=== PATIENT | female | born 1960 | race African-American/Black ===

== ENCOUNTER 2018-06-18 14:21 | Inpatient (IN) ==
[2018-06-18] MEDS ORDERED: GLUCAGON 1 MG VIAL IM PRN ×2 (15:00)
[2018-06-18] MEDS ORDERED: ONDANSETRON 4 MG/2 ML VIAL IV PRN (15:00)
[2018-06-18] MEDS ORDERED: MAGNESIUM HYDROXIDE SUSP 30 ML UDCUP PO PRN (15:00)
[2018-06-18] MEDS ORDERED: PROMETHAZINE 25 MG/1 ML VIAL IM PRN (15:00)
[2018-06-18] MEDS ORDERED: DEXTROSE 50% 25 GM/50 ML VIAL IV PRN ×2 (15:00)
[2018-06-18] MEDS ORDERED: DILTIAZEM INJ 100 MG in SODIUM CHLORIDE 0.9% 100 ML IV SCH (16:00)
[2018-06-18] MEDS: SODIUM CHLORIDE 0.9% 1,000 ML IV SCH (17:31)
[2018-06-18] MEDS: INSULIN GLARGINE 100 UNIT/ML SUBCUT SCH (17:32)
[2018-06-18] MEDS: INSULIN REGULAR 100 UNIT/ML SUBCUT SCH (17:32)
[2018-06-18] MEDS: cefTRIAXone 500 MG in SYRINGE 1 EACH IV SCH (17:32)
[2018-06-18] MEDS: DILTIAZEM 60 MG TABLET PO SCH ×2 (17:54→21:25)
[2018-06-18] MEDS: ALBUTEROL/IPRATROPIUM 3 ML NEB RESP TX SCH (19:42)
[2018-06-18 21:24] LABS: Basophils # 0.1 10*3/uL (0.0-0.2); Basophils % 0.6 % (0.0-0.8); Eosinophils # 0.2 10*3/uL (0.0-0.87); Eosinophils % 1.5 % (0.00-10.9); Hematocrit 42.6 VOL% (35.7-47.0); Hemoglobin 14.3 GM/DL (12.0-16.0); Immature Granulocytes % 0.4 %; Immature Granulocytes Absolute 0.04 #; Lymphocytes # 3.8 10*3/uL (1.4-4.0); Mean Corpuscular HGB Conc 33.6 GM/DL (32-36); Mean Corpuscular Hemoglobin 31 PG (27-34); Mean Corpuscular Volume 92.4 FL (87-102); Mean Platelet Volume 11.1 FL (9.6-12.0); Monocytes % 8.5 % (1.7-12.7); Neutrophils # 6.1 10*3/uL (1.4-7.4); Platelet Count 165 T/CUMM (130-400); Red Blood Count 4.61 MC/CUMM (3.8-5.5); Red Cell Distribution Width 12.2 % (9.3-17.3); White Blood Count 11.1 T/CUMM (4-12)
[2018-06-18] MEDS: FAMOTIDINE 20 MG TABLET PO SCH (21:28)
[2018-06-18] MEDS: DOCUSATE SODIUM 100 MG CAPSULE PO SCH (21:28)
[2018-06-18] MEDS: ACETAMINOPHEN 325 MG TABLET PO PRN (21:28)
[2018-06-18 21:51] LABS: Albumin 3.5 G/DL (3.4-5.0); Bilirubin,Total 0.4 MG/DL (0.2-1.0); Calcium 9.3 MG/DL (8.5-10.1); Osmolality,Calculated 287.8 MOS/KG (273-304); Potassium 3.8 MMOL/L (3.5-5.1); Total Protein 8.2 G/DL (6.4-8.3)
[2018-06-19] MEDS ORDERED: GLIMEPIRIDE 2 MG TABLET PO ONE (00:08)
[2018-06-19] MEDS: traMADol 50 MG TABLET PO PRN ×2 (00:09→08:49)
[2018-06-19] MEDS: AMITRIPTYLINE 50 MG TABLET PO SCH ×2 (00:43→21:15)
[2018-06-19] MEDS: INSULIN REGULAR 100 UNIT/ML SUBCUT SCH ×5 (00:43→22:33)
[2018-06-19] MEDS: CYCLOBENZAPRINE 10 MG TABLET PO SCH ×2 (00:43→21:16)
[2018-06-19] MEDS: SODIUM CHLORIDE 0.9% 1,000 ML IV SCH ×3 (00:44→21:17)
[2018-06-19 00:58] LABS: Basophils # 0.1 10*3/uL (0.0-0.2); Basophils % 0.7 % (0.0-0.8); Eosinophils # 0.2 10*3/uL (0.0-0.87); Eosinophils % 1.4 % (0.00-10.9); Hematocrit 44.5 VOL% (35.7-47.0); Hemoglobin 14.4 GM/DL (12.0-16.0); Immature Granulocytes % 0.4 %; Immature Granulocytes Absolute 0.04 #; Lymphocytes # 3.7 10*3/uL (1.4-4.0); Lymphocytes % 33.7 % (21.3-54.2); Mean Corpuscular HGB Conc 32.4 GM/DL (32-36); Mean Corpuscular Hemoglobin 30 PG (27-34); Mean Corpuscular Volume 92.9 FL (87-102); Mean Platelet Volume 10.9 FL (9.6-12.0); Monocytes % 9.3 % (1.7-12.7); Neutrophils % 54.5 % (38.7-73.9); Platelet Count 163 T/CUMM (130-400); Red Blood Count 4.79 MC/CUMM (3.8-5.5); Red Cell Distribution Width 12.1 % (9.3-17.3); White Blood Count 10.9 T/CUMM (4-12)
[2018-06-19] MEDS: ALBUTEROL/IPRATROPIUM 3 ML NEB RESP TX SCH ×4 (01:20→19:30)
[2018-06-19 01:23] LABS: Calcium 8.9 MG/DL (8.5-10.1); Osmolality,Calculated 286.8 MOS/KG (273-304); Potassium 4.1 MMOL/L (3.5-5.1); Risk Ratio 3.98; VLDL CHOLESTEROL 22.2 MG/DL
[2018-06-19] MEDS ORDERED: GLIMEPIRIDE 2 MG TABLET PO SCH (08:00)
[2018-06-19] MEDS: INSULIN GLARGINE 100 UNIT/ML SUBCUT SCH (08:47)
[2018-06-19] MEDS: FAMOTIDINE 20 MG TABLET PO SCH ×2 (08:48→21:13)
[2018-06-19] MEDS: POTASSIUM CHLORIDE 20 MEQ TABLET PO SCH ×2 (08:49→21:16)
[2018-06-19] MEDS: DOCUSATE SODIUM 100 MG CAPSULE PO SCH ×2 (08:49→21:15)
[2018-06-19] MEDS: MAGNESIUM OXIDE 400 MG TABLET PO SCH (08:49)
[2018-06-19] MEDS: ACETAMINOPHEN 325 MG TABLET PO PRN ×2 (08:50→21:16)
[2018-06-19] MEDS: LOSARTAN 50 MG TABLET PO SCH (08:50)
[2018-06-19] MEDS: ASPIRIN EC 81 MG TABLET PO SCH (08:50)
[2018-06-19] MEDS: CARVEDILOL 25 MG TABLET PO SCH ×2 (08:50→21:16)
[2018-06-19] MEDS ORDERED: DILTIAZEM 60 MG TABLET PO SCH (09:00)
[2018-06-19] MEDS ORDERED: CYCLOBENZAPRINE 10 MG TABLET PO SCH (09:00)
[2018-06-19] MEDS ORDERED: AMITRIPTYLINE 50 MG TABLET PO SCH (09:00)
[2018-06-19] MEDS: INSULIN LISPRO 100 UNIT/ML SUBCUT SCH ×2 (13:08→16:21)
[2018-06-19] MEDS: KETOROLAC 15 MG/1 ML VIAL IV PRN (13:40)
[2018-06-19] MEDS: cefTRIAXone 500 MG in SYRINGE 1 EACH IV SCH (16:22)
[2018-06-19 17:19] LABS: Apearance,Urine CLEAR (Clear); Bilirubin,Urine Negative (Negative); Blood, Urine Negative (Negative); Glucose,Urine (UA) >=500 mg/dL (Negative); Ketones,Urine Negative (Negative); Mucus,Urine Occasional /LPF (Occasional); Nitrite,Urine Negative (Negative); Protein,Urine Negative; RBC,Urine <1 /HPF (0-4); Squamous Epithelial Cell,Urine Occasional /HPF (0-10); Urine Color Yellow (Yellow); Urine Specific Gravity 1.028 (1.001-1.035); WBC,Urine 2 /HPF (0-6)
[2018-06-19] MEDS: NYSTATIN OINT 15 GM TUBE TOP SCH (21:12)
[2018-06-19] MEDS: ATORVASTATIN 40 MG TABLET PO SCH (21:15)
[2018-06-20] MEDS: ALBUTEROL/IPRATROPIUM 3 ML NEB RESP TX SCH ×4 (01:16→20:32)
[2018-06-20] MEDS: KETOROLAC 15 MG/1 ML VIAL IV PRN ×2 (01:25→16:11)
[2018-06-20] MEDS: POTASSIUM CHLORIDE 20 MEQ TABLET PO SCH ×2 (08:56→21:14)
[2018-06-20] MEDS: GLIMEPIRIDE 2 MG TABLET PO SCH ×2 (08:56→16:11)
[2018-06-20] MEDS: LOSARTAN 50 MG TABLET PO SCH (08:57)
[2018-06-20] MEDS: MAGNESIUM OXIDE 400 MG TABLET PO SCH (08:57)
[2018-06-20] MEDS: ASPIRIN EC 81 MG TABLET PO SCH (08:57)
[2018-06-20] MEDS: CARVEDILOL 25 MG TABLET PO SCH ×2 (08:57→21:14)
[2018-06-20] MEDS: FAMOTIDINE 20 MG TABLET PO SCH ×2 (08:57→21:14)
[2018-06-20] MEDS: DOCUSATE SODIUM 100 MG CAPSULE PO SCH ×2 (08:57→21:14)
[2018-06-20] MEDS: INSULIN GLARGINE 100 UNIT/ML SUBCUT SCH (08:58)
[2018-06-20] MEDS: INSULIN LISPRO 100 UNIT/ML SUBCUT SCH ×3 (08:58→16:11)
[2018-06-20] MEDS: ENOXAPARIN 40 MG/0.4 ML SYRINGE SUBCUT SCH (08:59)
[2018-06-20] MEDS ORDERED: PENTOXIFYLLINE 400 MG TABLET PO SCH (09:00)
[2018-06-20] MEDS: NYSTATIN OINT 15 GM TUBE TOP SCH ×2 (09:01→20:32)
[2018-06-20] MEDS: INSULIN REGULAR 100 UNIT/ML SUBCUT SCH ×4 (09:01→21:20)
[2018-06-20] MEDS: SODIUM CHLORIDE 0.9% 1,000 ML IV SCH ×4 (09:28→20:05)
[2018-06-20 09:43] LABS: Basophils # 0.1 10*3/uL (0.0-0.2); Basophils % 0.7 % (0.0-0.8); Eosinophils # 0.2 10*3/uL (0.0-0.87); Eosinophils % 2.1 % (0.00-10.9); Hematocrit 41.1 VOL% (35.7-47.0); Hemoglobin 13.2 GM/DL (12.0-16.0); Immature Granulocytes % 0.3 %; Immature Granulocytes Absolute 0.02 #; Lymphocytes # 2.6 10*3/uL (1.4-4.0); Lymphocytes % 36.3 % (21.3-54.2); Mean Corpuscular HGB Conc 32.1 GM/DL (32-36); Mean Corpuscular Hemoglobin 30 PG (27-34); Mean Corpuscular Volume 94.7 FL (87-102); Monocytes # 0.5 10*3/uL (0.11-0.8); Monocytes % 6.9 % (1.7-12.7); Neutrophils # 3.9 10*3/uL (1.4-7.4); Neutrophils % 53.7 % (38.7-73.9); Platelet Count 136 T/CUMM (130-400); Red Blood Count 4.34 MC/CUMM (3.8-5.5); Red Cell Distribution Width 12.3 % (9.3-17.3); White Blood Count 7.2 T/CUMM (4-12)
[2018-06-20 10:03] LABS: Alanine Aminotransferase 42 U/L (13-56); Albumin 3.2 G/DL (3.4-5.0); Alkaline Phosphatase 80 U/L (45-117); Aspartate Amino Transferase 24 U/L (0-37); Bilirubin,Total < 0.39 MG/DL (0.2-1.0); Blood Urea Nitrogen 21 MG/DL (7-18); Calcium 8.5 MG/DL (8.5-10.1); Glucose 335 MG/DL (74-106); Osmolality,Calculated 290.7 MOS/KG (273-304); Potassium 4.6 MMOL/L (3.5-5.1); Sodium 138 MMOL/L (136-145); Total Protein 7.2 G/DL (6.4-8.3)
[2018-06-20] MEDS: ACETAMINOPHEN 325 MG TABLET PO PRN (10:25)
[2018-06-20] MEDS: cefTRIAXone 500 MG in SYRINGE 1 EACH IV SCH (16:10)
[2018-06-20] MEDS ORDERED: MAGNESIUM SULF RIDER 1 GM in PREMIX 1 EACH IV ONE (17:12)
[2018-06-20] MEDS: GABAPENTIN 300 MG CAPSULE PO SCH (21:13)
[2018-06-20] MEDS: AMITRIPTYLINE 50 MG TABLET PO SCH (21:13)
[2018-06-20] MEDS: ATORVASTATIN 40 MG TABLET PO SCH (21:14)
[2018-06-20] MEDS: CYCLOBENZAPRINE 10 MG TABLET PO SCH (21:14)
[2018-06-21] MEDS: ALBUTEROL/IPRATROPIUM 3 ML NEB RESP TX SCH ×4 (01:38→19:36)
[2018-06-21] MEDS: DOCUSATE SODIUM 100 MG CAPSULE PO SCH ×2 (11:58→20:56)
[2018-06-21] MEDS: MAGNESIUM OXIDE 400 MG TABLET PO SCH (11:58)
[2018-06-21] MEDS: FAMOTIDINE 20 MG TABLET PO SCH ×2 (11:59→20:57)
[2018-06-21] MEDS: CARVEDILOL 25 MG TABLET PO SCH ×2 (12:00→20:57)
[2018-06-21] MEDS: ASPIRIN EC 81 MG TABLET PO SCH (12:00)
[2018-06-21] MEDS: FUROSEMIDE 40 MG TABLET PO SCH (12:00)
[2018-06-21] MEDS: LOSARTAN 50 MG TABLET PO SCH ×2 (12:00→20:57)
[2018-06-21] MEDS: INSULIN GLARGINE 100 UNIT/ML SUBCUT SCH (12:03)
[2018-06-21] MEDS: INSULIN LISPRO 100 UNIT/ML SUBCUT SCH ×3 (12:05→16:33)
[2018-06-21] MEDS: ENOXAPARIN 40 MG/0.4 ML SYRINGE SUBCUT SCH (12:06)
[2018-06-21] MEDS: GLIMEPIRIDE 2 MG TABLET PO SCH ×2 (12:14→16:30)
[2018-06-21] MEDS: POTASSIUM CHLORIDE 20 MEQ TABLET PO SCH ×2 (12:14→20:57)
[2018-06-21] MEDS: NYSTATIN OINT 15 GM TUBE TOP SCH ×2 (12:14→20:56)
[2018-06-21] MEDS: INSULIN REGULAR 100 UNIT/ML SUBCUT SCH ×3 (12:15→20:56)
[2018-06-21] MEDS: cefTRIAXone 500 MG in SYRINGE 1 EACH IV SCH (16:31)
[2018-06-21] MEDS: SODIUM CHLORIDE 0.9% 1,000 ML IV SCH (16:32)
[2018-06-21] MEDS: AMITRIPTYLINE 50 MG TABLET PO SCH (20:56)
[2018-06-21] MEDS: CYCLOBENZAPRINE 10 MG TABLET PO SCH (20:56)
[2018-06-21] MEDS: ATORVASTATIN 40 MG TABLET PO SCH (20:57)
[2018-06-21] MEDS: GABAPENTIN 300 MG CAPSULE PO SCH (20:57)
[2018-06-21] MEDS: KETOROLAC 15 MG/1 ML VIAL IV PRN (23:05)
[2018-06-22] MEDS: ALBUTEROL/IPRATROPIUM 3 ML NEB RESP TX SCH ×4 (00:08→19:30)
[2018-06-22] MEDS: ACETAMINOPHEN 325 MG TABLET PO PRN (02:31)
[2018-06-22] MEDS: SODIUM CHLORIDE 0.9% 1,000 ML IV SCH ×2 (02:52→17:36)
[2018-06-22 04:01] LABS: Calcium 8.2 MG/DL (8.5-10.1); Potassium 4.1 MMOL/L (3.5-5.1)
[2018-06-22] MEDS ORDERED: MAGNESIUM SULF RIDER 2 GM in PREMIX 1 EACH IV ONE (05:46)
[2018-06-22] MEDS: INSULIN GLARGINE 100 UNIT/ML SUBCUT SCH (09:42)
[2018-06-22] MEDS: INSULIN LISPRO 100 UNIT/ML SUBCUT SCH ×3 (09:42→16:35)
[2018-06-22] MEDS: ENOXAPARIN 40 MG/0.4 ML SYRINGE SUBCUT SCH (09:42)
[2018-06-22] MEDS: FAMOTIDINE 20 MG TABLET PO SCH ×2 (09:43→21:01)
[2018-06-22] MEDS: INSULIN REGULAR 100 UNIT/ML SUBCUT SCH ×4 (09:43→21:02)
[2018-06-22] MEDS: MAGNESIUM OXIDE 400 MG TABLET PO SCH (09:43)
[2018-06-22] MEDS: POTASSIUM CHLORIDE 20 MEQ TABLET PO SCH ×2 (09:43→21:01)
[2018-06-22] MEDS: DOCUSATE SODIUM 100 MG CAPSULE PO SCH ×2 (09:43→21:01)
[2018-06-22] MEDS: GLIMEPIRIDE 2 MG TABLET PO SCH ×2 (09:43→17:43)
[2018-06-22] MEDS: LOSARTAN 50 MG TABLET PO SCH ×2 (09:44→21:01)
[2018-06-22] MEDS: CARVEDILOL 25 MG TABLET PO SCH ×2 (09:44→21:01)
[2018-06-22] MEDS: ASPIRIN EC 81 MG TABLET PO SCH (09:44)
[2018-06-22] MEDS: FUROSEMIDE 40 MG TABLET PO SCH (09:45)
[2018-06-22] MEDS: NYSTATIN OINT 15 GM TUBE TOP SCH ×2 (09:45→21:07)
[2018-06-22] MEDS: cefTRIAXone 500 MG in SYRINGE 1 EACH IV SCH (14:39)
[2018-06-22] MEDS: GABAPENTIN 300 MG CAPSULE PO SCH (21:01)
[2018-06-22] MEDS: CYCLOBENZAPRINE 10 MG TABLET PO SCH (21:01)
[2018-06-22] MEDS: ATORVASTATIN 40 MG TABLET PO SCH (21:01)
[2018-06-22] MEDS: AMITRIPTYLINE 50 MG TABLET PO SCH (21:01)
[2018-06-22] MEDS: KETOROLAC 15 MG/1 ML VIAL IV PRN (21:02)
[2018-06-22] MEDS ORDERED: FUROSEMIDE 40 MG/4 ML VIAL IV ONE (21:46)
[2018-06-22] MEDS ORDERED: FUROSEMIDE 40 MG/4 ML VIAL ONE (21:51)
[2018-06-23] MEDS: ALBUTEROL/IPRATROPIUM 3 ML NEB RESP TX SCH ×4 (00:32→19:15)
[2018-06-23 03:56] LABS: Calcium 8.4 MG/DL (8.5-10.1); Osmolality,Calculated 282.1 MOS/KG (273-304); Potassium 4.7 MMOL/L (3.5-5.1)
[2018-06-23] MEDS: INSULIN REGULAR 100 UNIT/ML SUBCUT SCH ×4 (07:51→21:40)
[2018-06-23] MEDS: ENOXAPARIN 40 MG/0.4 ML SYRINGE SUBCUT SCH (08:47)
[2018-06-23] MEDS: INSULIN LISPRO 100 UNIT/ML SUBCUT SCH ×3 (08:48→16:41)
[2018-06-23] MEDS: INSULIN GLARGINE 100 UNIT/ML SUBCUT SCH (08:48)
[2018-06-23] MEDS: FAMOTIDINE 20 MG TABLET PO SCH ×2 (08:49→21:06)
[2018-06-23] MEDS: POTASSIUM CHLORIDE 20 MEQ TABLET PO SCH ×2 (08:49→21:07)
[2018-06-23] MEDS: GLIMEPIRIDE 2 MG TABLET PO SCH ×2 (08:49→16:40)
[2018-06-23] MEDS: ASPIRIN EC 81 MG TABLET PO SCH (08:49)
[2018-06-23] MEDS: LOSARTAN 50 MG TABLET PO SCH ×2 (08:49→21:07)
[2018-06-23] MEDS: DOCUSATE SODIUM 100 MG CAPSULE PO SCH ×2 (08:49→21:07)
[2018-06-23] MEDS: FUROSEMIDE 40 MG TABLET PO SCH (08:50)
[2018-06-23] MEDS: CARVEDILOL 25 MG TABLET PO SCH ×2 (08:50→21:07)
[2018-06-23] MEDS: MAGNESIUM OXIDE 400 MG TABLET PO SCH (08:50)
[2018-06-23] MEDS ORDERED: FUROSEMIDE 40 MG/4 ML VIAL IV ONE (09:00)
[2018-06-23] MEDS: traMADol 50 MG TABLET PO PRN (09:20)
[2018-06-23] MEDS: NYSTATIN OINT 15 GM TUBE TOP SCH ×2 (11:50→21:40)
[2018-06-23] MEDS: cefTRIAXone 500 MG in SYRINGE 1 EACH IV SCH (15:51)
[2018-06-23] MEDS: ATORVASTATIN 40 MG TABLET PO SCH (21:07)
[2018-06-23] MEDS: AMITRIPTYLINE 50 MG TABLET PO SCH (21:07)
[2018-06-23] MEDS: CYCLOBENZAPRINE 10 MG TABLET PO SCH (21:07)
[2018-06-23] MEDS: GABAPENTIN 300 MG CAPSULE PO SCH (21:07)
[2018-06-23] MEDS: KETOROLAC 15 MG/1 ML VIAL IV PRN (23:55)
[2018-06-24] MEDS: ALBUTEROL/IPRATROPIUM 3 ML NEB RESP TX SCH ×4 (00:54→18:50)
[2018-06-24 06:44] LABS: Calcium 8.6 MG/DL (8.5-10.1); Osmolality,Calculated 284.4 MOS/KG (273-304); Potassium 4.2 MMOL/L (3.5-5.1)
[2018-06-24] MEDS: INSULIN LISPRO 100 UNIT/ML SUBCUT SCH ×3 (09:43→17:05)
[2018-06-24] MEDS: ENOXAPARIN 40 MG/0.4 ML SYRINGE SUBCUT SCH (09:44)
[2018-06-24] MEDS: INSULIN GLARGINE 100 UNIT/ML SUBCUT SCH (09:44)
[2018-06-24] MEDS: GLIMEPIRIDE 2 MG TABLET PO SCH ×2 (09:46→17:06)
[2018-06-24] MEDS: DOCUSATE SODIUM 100 MG CAPSULE PO SCH ×2 (09:46→20:32)
[2018-06-24] MEDS: CARVEDILOL 25 MG TABLET PO SCH ×2 (09:46→20:33)
[2018-06-24] MEDS: ASPIRIN EC 81 MG TABLET PO SCH (09:46)
[2018-06-24] MEDS: FAMOTIDINE 20 MG TABLET PO SCH ×2 (09:46→20:32)
[2018-06-24] MEDS: POTASSIUM CHLORIDE 20 MEQ TABLET PO SCH ×2 (09:46→20:33)
[2018-06-24] MEDS: FUROSEMIDE 40 MG TABLET PO SCH (09:46)
[2018-06-24] MEDS: MAGNESIUM OXIDE 400 MG TABLET PO SCH (09:46)
[2018-06-24] MEDS: LOSARTAN 50 MG TABLET PO SCH ×2 (09:46→20:32)
[2018-06-24] MEDS: NYSTATIN OINT 15 GM TUBE TOP SCH ×2 (09:47→20:33)
[2018-06-24] MEDS: INSULIN REGULAR 100 UNIT/ML SUBCUT SCH ×4 (09:47→21:08)
[2018-06-24] MEDS: GABAPENTIN 300 MG CAPSULE PO SCH (20:32)
[2018-06-24] MEDS: AMITRIPTYLINE 50 MG TABLET PO SCH (20:32)
[2018-06-24] MEDS: CEFUROXIME 500 MG TABLET PO SCH (20:32)
[2018-06-24] MEDS: ATORVASTATIN 40 MG TABLET PO SCH (20:33)
[2018-06-24] MEDS: CYCLOBENZAPRINE 10 MG TABLET PO SCH (20:33)
[2018-06-25] MEDS: ALBUTEROL/IPRATROPIUM 3 ML NEB RESP TX SCH ×4 (01:22→19:17)
[2018-06-25] MEDS: LOSARTAN 50 MG TABLET PO SCH (09:05)
[2018-06-25] MEDS: CEFUROXIME 500 MG TABLET PO SCH (09:05)
[2018-06-25] MEDS: MAGNESIUM OXIDE 400 MG TABLET PO SCH (09:05)
[2018-06-25] MEDS: FAMOTIDINE 20 MG TABLET PO SCH ×2 (09:05→20:01)
[2018-06-25] MEDS: GLIMEPIRIDE 2 MG TABLET PO SCH ×2 (09:05→16:25)
[2018-06-25] MEDS: ASPIRIN EC 81 MG TABLET PO SCH (09:06)
[2018-06-25] MEDS: FUROSEMIDE 40 MG TABLET PO SCH (09:06)
[2018-06-25] MEDS: DOCUSATE SODIUM 100 MG CAPSULE PO SCH (09:06)
[2018-06-25] MEDS: ENOXAPARIN 40 MG/0.4 ML SYRINGE SUBCUT SCH (09:06)
[2018-06-25] MEDS: POTASSIUM CHLORIDE 20 MEQ TABLET PO SCH ×2 (09:06→20:01)
[2018-06-25] MEDS: CARVEDILOL 25 MG TABLET PO SCH ×2 (09:06→20:01)
[2018-06-25] MEDS: INSULIN GLARGINE 100 UNIT/ML SUBCUT SCH (09:07)
[2018-06-25] MEDS: INSULIN LISPRO 100 UNIT/ML SUBCUT SCH ×3 (09:07→16:25)
[2018-06-25] MEDS: INSULIN REGULAR 100 UNIT/ML SUBCUT SCH ×3 (09:08→15:53)
[2018-06-25] MEDS: NYSTATIN OINT 15 GM TUBE TOP SCH (09:09)
[2018-06-25] MEDS: ATORVASTATIN 40 MG TABLET PO SCH (20:01)
[2018-06-25] MEDS: GABAPENTIN 300 MG CAPSULE PO SCH (20:01)
[2018-06-25] MEDS: CYCLOBENZAPRINE 10 MG TABLET PO SCH (20:01)
[2018-06-25 21:51] VITALS: BP 151/83
== END 2018-06-25 20:20 | disposition home health service (06) | DRG 638 ==
LOC: N.2W 15:37 → N.TELEN 17:21
PROVIDERS: ADMIT Internal Medicine; ATTEND Internal Medicine

== ENCOUNTER 2019-05-23 07:16 | Inpatient (IN) ==
[2019-05-21 10:57] LABS: Basophils # 0.1 10*3/uL (0.0-0.2); Basophils % 0.6 % (0.0-0.8); Eosinophils # 0.1 10*3/uL (0.0-0.87); Eosinophils % 1.4 % (0.00-10.9); Hematocrit 38.3 VOL% (35.7-47.0); Hemoglobin 12.5 GM/DL (12.0-16.0); Immature Granulocytes % 0.4 %; Immature Granulocytes Absolute 0.04 #; Lymphocytes # 3.5 10*3/uL (1.4-4.0); Lymphocytes % 36.7 % (21.3-54.2); Mean Corpuscular HGB Conc 32.6 GM/DL (32-36); Mean Corpuscular Volume 95.8 FL (87-102); Mean Platelet Volume 10.2 FL (9.6-12.0); Monocytes % 7.9 % (1.7-12.7); Platelet Count 176 T/CUMM (130-400); Red Cell Distribution Width 12.7 % (9.3-17.3); White Blood Count 9.5 T/CUMM (4-12)
[2019-05-21 11:17] LABS: Albumin 3.3 G/DL (3.4-5.0); Bilirubin,Total 0.4 MG/DL (0.2-1.0); Calcium 9.2 MG/DL (8.5-10.1); Osmolality,Calculated 275.1 MOS/KG (273-304); Total Protein 8.2 G/DL (6.4-8.3)
[~2019-05-23 07:16] MED LIST: ACETAMINOPHEN 500 MG TABLET PO ONE; FAMOTIDINE 20 MG TABLET PO ONE; GABAPENTIN 400 MG CAPSULE PO ONE; LACTATED RINGERS 1,000 ML IV SCH; ceFAZolin 1,000 MG in SYRINGE 1 EACH IV ONE
[2019-05-23] MEDS ORDERED: DEXAMETHASONE 4 MG/1 ML VIAL ONE ×2 (07:20→11:21)
[2019-05-23] MEDS ORDERED: ROPIVACAINE 0.5% 30 ML VIAL ONE (07:20)
[2019-05-23] MEDS ORDERED: MIDAZOLAM 2 MG/2 ML VIAL ONE ×2 (07:21→14:15)
[2019-05-23] MEDS ORDERED: EPINEPHrine 1 MG/ML VIAL ONE (07:21)
[2019-05-23] MEDS ORDERED: LIDOCAINE 1% 5 ML VIAL ONE ×2 (07:21→11:21)
[2019-05-23] MEDS ORDERED: ACETAMINOPHEN 500 MG TABLET ONE (07:52)
[2019-05-23] MEDS ORDERED: FAMOTIDINE 20 MG TABLET ONE (07:52)
[2019-05-23] MEDS ORDERED: GABAPENTIN 400 MG CAPSULE ONE (07:53)
[2019-05-23] MEDS ORDERED: ceFAZolin 1,000 MG VIAL ONE ×2 (07:53→09:17)
[2019-05-23] MEDS ORDERED: BUPIVACAINE MPF 0.25% 30 ML VIAL ONE (08:17)
[2019-05-23] MEDS ORDERED: LIDOCAINE MPF 1% /EPI 30 ML VIAL ONE (08:17)
[2019-05-23] MEDS ORDERED: ISOSULFAN BLUE 5 ML VIAL SUBCUT ONE (08:18)
[2019-05-23] MEDS ORDERED: GLUCAGON 1 MG VIAL IM PRN (10:49)
[2019-05-23] MEDS ORDERED: DEXTROSE 50% 25 GM/50 ML VIAL IV PRN (10:49)
[2019-05-23] MEDS ORDERED: MAGNESIUM HYDROXIDE SUSP 30 ML UDCUP PO PRN (10:51)
[2019-05-23] MEDS ORDERED: ALBUTEROL 2.5 MG/3 ML NEB RESP TX PRN (10:51)
[2019-05-23] MEDS ORDERED: GLYCOPYRROLATE 0.4 MG/2 ML VIAL ONE (11:21)
[2019-05-23] MEDS ORDERED: LABETALOL 20 MG/4 ML SYRINGE IV ONE (11:21)
[2019-05-23] MEDS ORDERED: ONDANSETRON 4 MG/2 ML VIAL ONE ×2 (11:21→14:15)
[2019-05-23] MEDS ORDERED: fentaNYL 100 MCG/2 ML VIAL ONE ×2 (11:21→14:15)
[2019-05-23] MEDS ORDERED: PROPOFOL 200 MG/20 ML VIAL IV ONE ×2 (11:21→14:15)
[2019-05-23] MEDS ORDERED: ROCURONIUM 100 MG/10 ML VIAL IV ONE ×2 (11:22→14:16)
[2019-05-23] MEDS ORDERED: NEOSTIGMINE 10 MG/10 ML VIAL ONE (11:22)
[2019-05-23] MEDS ORDERED: LACTATED RINGERS 1,000 ML IV ONE ×2 (11:22→14:16)
[2019-05-23] MEDS ORDERED: SUCCINYLCHOLINE 200 MG/10 ML VIAL ONE ×2 (11:22→14:16)
[2019-05-23] MEDS ORDERED: MEPERIDINE 25 MG/1 ML VIAL IV PRN (11:32)
[2019-05-23] MEDS ORDERED: ONDANSETRON 4 MG/2 ML VIAL IV PRN (11:32)
[2019-05-23] MEDS ORDERED: PROMETHAZINE INJ 25 MG in SODIUM CHLORIDE 0.9% 50 ML IV PRN (11:32)
[2019-05-23] MEDS: ONDANSETRON 4 MG/2 ML VIAL IV PRN ×2 (12:42→19:16)
[2019-05-23] MEDS ORDERED: SODIUM CHLORIDE 0.9% 500 ML IV ONE (12:54)
[2019-05-23 13:25] LABS: Hematocrit 30.5 VOL% (35.7-47.0)
[2019-05-23 13:31] LABS: Hemoglobin 9.7 GM/DL (12.0-16.0)
[2019-05-23] MEDS ORDERED: MICROFIBRILLAR COLLAGEN POWDER 1 GM CAN TOP ONE (13:32)
[2019-05-23] MEDS ORDERED: LIDOCAINE 1% 20 ML VIAL ONE (13:32)
[2019-05-23] MEDS ORDERED: SODIUM CHLORIDE 0.9% 1,000 ML IV PRN (14:05)
[2019-05-23] MEDS ORDERED: LIDOCAINE 100 MG/5 ML SYRINGE ONE (14:15)
[2019-05-23] MEDS ORDERED: PHENYLEPHRINE DRIP 20 MG/250 ML PREMIX IV ONE (14:15)
[2019-05-23] MEDS ORDERED: PHENYLEPHRINE 1 MG/10 ML SYRINGE IV ONE (14:16)
[2019-05-23] MEDS ORDERED: INFLUENZA VIRUS VACCINE 0.5 ML SYRINGE IM ONE (14:18)
[2019-05-23] MEDS ORDERED: ALBUMIN 5% 12.5 GM/250 ML VIAL IV ONE (14:34)
[2019-05-23] MEDS ORDERED: GABAPENTIN 300 MG CAPSULE PO SCH (15:00)
[2019-05-23] MEDS ORDERED: SEVOFLURANE 1 UNIT/15 MINUTE INH ONE (15:03)
[2019-05-23] MEDS: INSULIN REGULAR 100 UNIT/ML SUBCUT SCH ×3 (15:08→20:47)
[2019-05-23 15:53] LABS: Basophils % 0.3 % (0.0-0.8); Eosinophils % 0.1 % (0.00-10.9); Hematocrit 29.2 VOL% (35.7-47.0); Hemoglobin 9.4 GM/DL (12.0-16.0); Immature Granulocytes % 0.8 %; Immature Granulocytes Absolute 0.12 #; Lymphocytes # 2.2 10*3/uL (1.4-4.0); Lymphocytes % 14.2 % (21.3-54.2); Mean Corpuscular HGB Conc 32.2 GM/DL (32-36); Mean Platelet Volume 10.6 FL (9.6-12.0); Monocytes % 2.3 % (1.7-12.7); Neutrophils % 82.3 % (38.7-73.9); Platelet Count 149 T/CUMM (130-400); Red Blood Count 2.98 MC/CUMM (3.8-5.5); Red Cell Distribution Width 12.7 % (9.3-17.3); White Blood Count 15.2 T/CUMM (4-12)
[2019-05-23] MEDS: GLIMEPIRIDE 2 MG TABLET PO SCH (17:06)
[2019-05-23] MEDS: ceFAZolin 3,000 MG in SYRINGE 1 EACH IV SCH (17:29)
[2019-05-23] MEDS: MORPHINE 4 MG/1 ML VIAL IV PRN (19:14)
[2019-05-23] MEDS: POTASSIUM CHLORIDE 20 MEQ TABLET PO SCH (20:44)
[2019-05-23] MEDS ORDERED: CARVEDILOL 25 MG TABLET PO SCH (21:00)
[2019-05-23] MEDS ORDERED: LOSARTAN 50 MG TABLET PO SCH (21:00)
[2019-05-23] MEDS ORDERED: INSULIN NPH/REGULAR 70/30 100 UNIT/ML SUBCUT SCH (21:00)
[2019-05-24] MEDS: ONDANSETRON 4 MG/2 ML VIAL IV PRN (00:03)
[2019-05-24] MEDS: MORPHINE 4 MG/1 ML VIAL IV PRN ×2 (00:04→08:22)
[2019-05-24] MEDS: ceFAZolin 3,000 MG in SYRINGE 1 EACH IV SCH (04:48)
[2019-05-24 07:30] LABS: Basophils % 0.2 % (0.0-0.8); Hematocrit 24.5 VOL% (35.7-47.0); Immature Granulocytes % 0.7 %; Immature Granulocytes Absolute 0.08 #; Lymphocytes # 3.7 10*3/uL (1.4-4.0); Lymphocytes % 30.7 % (21.3-54.2); Mean Corpuscular HGB Conc 32.7 GM/DL (32-36); Mean Corpuscular Volume 96.8 FL (87-102); Mean Platelet Volume 10.5 FL (9.6-12.0); Monocytes % 10.3 % (1.7-12.7); Neutrophils % 58.1 % (38.7-73.9); Platelet Count 154 T/CUMM (130-400); Red Blood Count 2.53 MC/CUMM (3.8-5.5); Red Cell Distribution Width 12.6 % (9.3-17.3); White Blood Count 12.1 T/CUMM (4-12)
[2019-05-24 07:47] LABS: Calcium 8.6 MG/DL (8.5-10.1)
[2019-05-24] MEDS: CYCLOBENZAPRINE 10 MG TABLET PO SCH (08:21)
[2019-05-24] MEDS: FUROSEMIDE 40 MG TABLET PO SCH (08:21)
[2019-05-24] MEDS: MAGNESIUM OXIDE 400 MG TABLET PO SCH (08:21)
[2019-05-24] MEDS: GLIMEPIRIDE 2 MG TABLET PO SCH ×2 (08:21→17:59)
[2019-05-24] MEDS: PANTOPRAZOLE 40 MG TABLET PO SCH (08:22)
[2019-05-24] MEDS: ASPIRIN EC 81 MG TABLET PO SCH (08:22)
[2019-05-24] MEDS: AMITRIPTYLINE 50 MG TABLET PO SCH (08:22)
[2019-05-24] MEDS: POTASSIUM CHLORIDE 20 MEQ TABLET PO SCH ×2 (08:22→20:52)
[2019-05-24] MEDS: INSULIN REGULAR 100 UNIT/ML SUBCUT SCH ×4 (09:04→20:51)
[2019-05-24] MEDS: ACETAMINOPHEN 325 MG TABLET PO PRN (16:15)
[2019-05-24] MEDS: INSULIN NPH/REGULAR 70/30 100 UNIT/ML SUBCUT SCH (17:59)
[2019-05-25] MEDS: ONDANSETRON 4 MG TABLET PO PRN (05:58)
[2019-05-25] MEDS: ACETAMINOPHEN 325 MG TABLET PO PRN (06:01)
[2019-05-25 07:32] LABS: Basophils # 0.1 10*3/uL (0.0-0.2); Basophils % 0.4 % (0.0-0.8); Eosinophils # 0.2 10*3/uL (0.0-0.87); Eosinophils % 1.2 % (0.00-10.9); Hematocrit 23.2 VOL% (35.7-47.0); Hemoglobin 7.5 GM/DL (12.0-16.0); Immature Granulocytes % 2.1 %; Immature Granulocytes Absolute 0.28 #; Lymphocytes # 6.3 10*3/uL (1.4-4.0); Lymphocytes % 46.7 % (21.3-54.2); Mean Corpuscular HGB Conc 32.3 GM/DL (32-36); Mean Corpuscular Volume 97.1 FL (87-102); Mean Platelet Volume 10.4 FL (9.6-12.0); Monocytes % 8.8 % (1.7-12.7); NRBC # 0.03 10*3/uL; Neutrophils % 40.8 % (38.7-73.9); Platelet Count 147 T/CUMM (130-400); Red Blood Count 2.39 MC/CUMM (3.8-5.5); Red Cell Distribution Width 12.8 % (9.3-17.3); White Blood Count 13.5 T/CUMM (4-12)
[2019-05-25] MEDS: oxyCODONE/ACETAMINOPHEN 5-325 MG TABLET PO PRN ×4 (08:22→21:01)
[2019-05-25] MEDS: INSULIN NPH/REGULAR 70/30 100 UNIT/ML SUBCUT SCH ×2 (08:24→16:46)
[2019-05-25] MEDS: INSULIN REGULAR 100 UNIT/ML SUBCUT SCH ×4 (08:24→21:02)
[2019-05-25] MEDS: CYCLOBENZAPRINE 10 MG TABLET PO SCH (09:00)
[2019-05-25] MEDS: AMITRIPTYLINE 50 MG TABLET PO SCH (09:00)
[2019-05-25] MEDS: FUROSEMIDE 40 MG TABLET PO SCH (09:00)
[2019-05-25] MEDS: ASPIRIN EC 81 MG TABLET PO SCH (09:37)
[2019-05-25] MEDS: GLIMEPIRIDE 2 MG TABLET PO SCH ×2 (09:37→16:45)
[2019-05-25] MEDS: MAGNESIUM OXIDE 400 MG TABLET PO SCH (09:38)
[2019-05-25] MEDS: POTASSIUM CHLORIDE 20 MEQ TABLET PO SCH ×2 (09:38→21:02)
[2019-05-25] MEDS: PANTOPRAZOLE 40 MG TABLET PO SCH (09:39)
[2019-05-25 11:16] LABS: Hematocrit 22.6 VOL% (35.7-47.0); Hemoglobin 7.1 GM/DL (12.0-16.0)
[2019-05-25] MEDS ORDERED: SODIUM CHLORIDE 0.9% 1,000 ML IV PRN (11:43)
[2019-05-25] MEDS ORDERED: LORazepam 1 MG TABLET PO ONE (12:42)
[2019-05-25] MEDS ORDERED: oxyCODONE/ACETAMINOPHEN 5-325 MG TABLET PO ONE (12:42)
[2019-05-25] MEDS ORDERED: CYCLOBENZAPRINE 10 MG TABLET PO SCH (21:00)
[2019-05-25] MEDS ORDERED: FUROSEMIDE 40 MG TABLET PO SCH (21:00)
[2019-05-25] MEDS ORDERED: AMITRIPTYLINE 50 MG TABLET PO SCH (21:00)
[2019-05-26] MEDS: oxyCODONE/ACETAMINOPHEN 5-325 MG TABLET PO PRN ×2 (03:21→08:44)
[2019-05-26] MEDS: ONDANSETRON 4 MG TABLET PO PRN (03:21)
[2019-05-26 05:10] LABS: Basophils # 0.1 10*3/uL (0.0-0.2); Basophils % 0.8 % (0.0-0.8); Eosinophils # 0.2 10*3/uL (0.0-0.87); Eosinophils % 1.8 % (0.00-10.9); Hematocrit 28.1 VOL% (35.7-47.0); Hemoglobin 9.2 GM/DL (12.0-16.0); Immature Granulocytes % 3.1 %; Immature Granulocytes Absolute 0.39 #; Lymphocytes # 5.2 10*3/uL (1.4-4.0); Lymphocytes % 40.6 % (21.3-54.2); Mean Corpuscular HGB Conc 32.7 GM/DL (32-36); Mean Corpuscular Volume 96.2 FL (87-102); Mean Platelet Volume 10.6 FL (9.6-12.0); Monocytes % 9.2 % (1.7-12.7); NRBC # 0.11 10*3/uL; Neutrophils % 44.5 % (38.7-73.9); Platelet Count 138 T/CUMM (130-400); Red Blood Count 2.92 MC/CUMM (3.8-5.5); Red Cell Distribution Width 13.3 % (9.3-17.3); White Blood Count 12.7 T/CUMM (4-12)
[2019-05-26] MEDS: INSULIN REGULAR 100 UNIT/ML SUBCUT SCH ×3 (08:36→16:57)
[2019-05-26] MEDS: ASPIRIN EC 81 MG TABLET PO SCH (08:37)
[2019-05-26] MEDS: GLIMEPIRIDE 2 MG TABLET PO SCH ×2 (08:37→16:56)
[2019-05-26] MEDS: PANTOPRAZOLE 40 MG TABLET PO SCH (08:38)
[2019-05-26] MEDS: POTASSIUM CHLORIDE 20 MEQ TABLET PO SCH (08:38)
[2019-05-26] MEDS: MAGNESIUM OXIDE 400 MG TABLET PO SCH (08:38)
[2019-05-26] MEDS: INSULIN NPH/REGULAR 70/30 100 UNIT/ML SUBCUT SCH ×2 (09:19→16:56)
[2019-05-26 12:36] LABS: Hematocrit 28.6 VOL% (35.7-47.0); Hemoglobin 9.5 GM/DL (12.0-16.0)
[2019-05-26 16:57] VITALS: BP 154/111
== END 2019-05-26 17:45 | disposition home health service (06) | DRG 580 ==
LOC: N.OR 07:16 → N.SDSINP 07:17 → N.4E 11:59 → N.ICU 15:03 → N.3E 05-24 15:26
PROVIDERS: ADMIT Surgery; ATTEND Surgery